=== PATIENT | female | born 1960 | race Caucasian/White ===

== ENCOUNTER 2024-03-28 21:52 | Inpatient (IN) | payer BC ==
[~2024-03-28] VITALS: Ht 165.1 cm; Wt 77.0 kg
[~2024-03-28 21:52] MED LIST: ENAL10TA78 PO; IPRA3AMP31 IH; IPRA4AER IH; METF500T PO; PRED10TA PO
[2024-03-28 22:16] LABS: BASOPHILS % (AUTO) 0.3 % (0-1); EOSINOPHILS % (AUTO) 0.1 % (0-6); HEMOGLOBIN 13.1 g/dl (12.0-16.0); LYMPHOCYTES # (AUTO) 1.7 X10'3 (1.1-4.8); LYMPHOCYTES % (AUTO) 13.5 % (21-51); MEAN CORPUSCULAR HGB CONC 33.5 g/dL (33.0-36.5); MEAN CORPUSCULAR VOLUME 89.5 FL (78-98); MEAN PLATELET VOLUME 8.3 FL (7.4-10.4); MONOCYTES # (AUTO) 0.6 X10'3 (0-0.9); MONOCYTES % (AUTO) 5.1 % (2-12); PLATELET COUNT 253 X10'3 (140-440); RED BLOOD COUNT 4.36 X10'6 (4.20-5.60); RED CELL DISTRIBUTION WIDTH 12.2 % (11.5-14.5); WHITE BLOOD COUNT 12.4 X10'3 (4.5-11.0)
[2024-03-28 22:25] LABS: ALANINE AMINOTRANSFERASE 51 U/L (12-78); ALBUMIN/GLOBULIN RATIO 0.6 (1.1-1.5); ALKALINE PHOSPHATASE 109 IU/L (46-116); ANION GAP 8 (8-16); ASPARTATE AMINO TRANSFERASE 34 U/L (10-37); BILIRUBIN,TOTAL 0.7 MG/DL (0.1-1.0); BLOOD UREA NITROGEN 8 MG/DL (7-18); BUN/CREATININE RATIO 11.4 (10.0-20.0); CALCIUM 9.4 MG/DL (8.5-10.1); CHLORIDE 93 MMOL/L (99-107); GLUCOSE 312 MG/DL (70-104); SODIUM 127 MMOL/L (135-145); TOTAL CARBON DIOXIDE 26.2 MMOL/L (24-32); TOTAL PROTEIN 8.1 G/DL (6.4-8.2); eCRCL 74 ML/MIN; eGFR 85 ML/MIN
[2024-03-28 22:32] LABS: PRO BRAIN NATRIURETIC PEPTIDE 1508 PG/ML (0-125)
[2024-03-28] MEDS: acetaminophen 1,000mg/100ml IV 100 ML IV STA (23:00)
[2024-03-28] MEDS: normal saline 1000ML IV soln IVB ONE (23:01)
[2024-03-28] MEDS ORDERED: iohexol 350MG/ML 100ml bottle IV ONE (23:09)
[2024-03-29] VITALS (13 sets, daily range): BP systolic 104–134; BP diastolic 45–78; PULSE 80–115; RESP 15–25; TEMP 97.7–98.1; O2SAT 92–96
[2024-03-29] MEDS ORDERED: heparin 10,000 units/1 ML INJ IV ONE ×2 (00:10→00:50)
[2024-03-29] MEDS ORDERED: potassium Cl 40MEQ/1/2NS 520ml 520 ML IV PRN (00:50)
[2024-03-29] MEDS ORDERED: magnesium 2GM in 50ml NS 50 ML IV PRN (00:50)
[2024-03-29] MEDS ORDERED: ondansetron/PF 4mg/2ml inj IV PRN ×2 (00:50→19:05)
[2024-03-29] MEDS ORDERED: dextrose 50%-water 50ml dispensing syringe IV PRN ×2 (00:50)
[2024-03-29] MEDS ORDERED: mag hydrox/Alum hydrox/simeth 30ml oral suspension PO PRN (00:50)
[2024-03-29] MEDS ORDERED: aminophylline 250mg/10ml inj. IV PRN (00:50)
[2024-03-29] MEDS ORDERED: regadenoson 0.4mg/5ml syringe IV PRN (00:50)
[2024-03-29] MEDS ORDERED: heparin 25,000 UNIT/250ml bag 250 ML IV PRN (00:50)
[2024-03-29] MEDS ORDERED: DEXTROSE 15 GM of carb/4 tabs (each vial/BOTTLE has 4 tablets) PO PRN ×2 (00:50)
[2024-03-29] MEDS ORDERED: magnesium hydroxide 30ml (MOM) UD suspension PO PRN (00:50)
[2024-03-29] MEDS ORDERED: heparin 10,000 units/1 ML INJ IV PRN (00:50)
[2024-03-29] MEDS ORDERED: glucagon, human recombinant 1mg kit SUBCUT PRN (00:50)
[2024-03-29] MEDS ORDERED: nitroGLYCERIN 0.4mg SUBLingual tab SL PRN (00:50)
[2024-03-29] MEDS ORDERED: magnesium 4gm in 100ml NS 100 ML IV PRN (00:50)
[2024-03-29] MEDS ORDERED: metoprolol tartrate 1mg/ml inj IV PRN (00:50)
[2024-03-29] MEDS: MESSAGE TO NURSING IV ONE ×3 (00:55→18:55)
[2024-03-29] MEDS ORDERED: non-formulary drug (Ipratropium/Albuterol Sulfate (Combivent Respimat Inhal Spray) 2 PUFFS IH PRN (01:00)
[2024-03-29] MEDS ORDERED: ipratropium/albuterol 3ml nebule IH PRN (01:00)
[2024-03-29] MEDS: heparin 10,000 units/1 ML INJ IV ONE (01:00)
[2024-03-29] MEDS: heparin 25,000 UNIT/250ml bag 250 ML IV PRN (01:03)
[2024-03-29] MEDS: morphine 2 MG/ML inj. syringe IV PRN ×2 (01:07→02:11)
[2024-03-29 01:09] LABS: APTT 23 SECONDS (22-32); INR 1.1 INR; PROTHROMBIN TIME 11.9 SECONDS (9.0-12.0)
[2024-03-29] MEDS: normal saline 1000ml 1,000 ML IV SCH (01:21)
[2024-03-29] MEDS: aspirin 81mg, enteric-coated 1 TAB TABLET.DR PO ONE (01:21)
[2024-03-29] MEDS: atorvastatin 20mg tablet PO SCH (01:21)
[2024-03-29 01:33] LABS: HEMOGLOBIN A1C 11.7 % (4.5-6.2)
[2024-03-29] MEDS: normal saline 1000ml 1,000 ML IV ONE (01:57)
[2024-03-29] MEDS ORDERED: ipratropium/albuterol 3ml nebule IH SCH (02:02)
[2024-03-29 02:43] LABS: MAGNESIUM 1.2 MG/DL (1.5-2.4); PHOSPHORUS 2.9 MG/DL (2.3-4.5)
[2024-03-29] MEDS: metoprolol tartrate 50mg tablet PO SCH (03:15)
[2024-03-29] MEDS: aspirin 81mg tab.chew PO ONE (03:15)
[2024-03-29] MEDS: nitroGLYCERIN 0.4mg SUBLingual tab SL PRN (04:13)
[2024-03-29] MEDS: ipratropium/albuterol 3ml nebule IH PRN (05:45)
[2024-03-29] MEDS: K and/or MAG REPLACEMENT MC SCH (08:00)
[2024-03-29] MEDS: lisinopril 20mg tablet PO SCH (08:08)
[2024-03-29 08:25] LABS: BASOPHILS % (AUTO) 0.3 % (0-1); EOSINOPHILS % (AUTO) 0.3 % (0-6); HEMATOCRIT 35.1 % (35.0-45.0); HEMOGLOBIN 11.6 g/dl (12.0-16.0); LYMPHOCYTES # (AUTO) 1.4 X10'3 (1.1-4.8); LYMPHOCYTES % (AUTO) 11.1 % (21-51); MEAN CORPUSCULAR HEMOGLOBIN 29.8 PG (27.0-31.0); MEAN CORPUSCULAR HGB CONC 33.1 g/dL (33.0-36.5); MEAN PLATELET VOLUME 8.5 FL (7.4-10.4); MONOCYTES % (AUTO) 7.9 % (2-12); NEUTROPHILS # (AUTO) 10.1 X10'3 (1.8-7.7); NEUTROPHILS % (AUTO) 80.4 % (42-75); PLATELET COUNT 223 X10'3 (140-440); RED CELL DISTRIBUTION WIDTH 12.2 % (11.5-14.5); WHITE BLOOD COUNT 12.6 X10'3 (4.5-11.0)
[2024-03-29 09:49] LABS: BASOPHILS # (AUTO) 0.1 X10'3 (0-0.2); BASOPHILS % (AUTO) 0.4 % (0-1); EOSINOPHILS % (AUTO) 0.3 % (0-6); HEMATOCRIT 34.4 % (35.0-45.0); HEMOGLOBIN 11.6 g/dl (12.0-16.0); LYMPHOCYTES # (AUTO) 1.5 X10'3 (1.1-4.8); MEAN CORPUSCULAR HEMOGLOBIN 30.6 PG (27.0-31.0); MEAN CORPUSCULAR HGB CONC 33.8 g/dL (33.0-36.5); MEAN CORPUSCULAR VOLUME 90.5 FL (78-98); MEAN PLATELET VOLUME 8.5 FL (7.4-10.4); MONOCYTES # (AUTO) 0.8 X10'3 (0-0.9); MONOCYTES % (AUTO) 7.1 % (2-12); NEUTROPHILS # (AUTO) 9.3 X10'3 (1.8-7.7); NEUTROPHILS % (AUTO) 79.2 % (42-75); PLATELET COUNT 203 X10'3 (140-440); RED CELL DISTRIBUTION WIDTH 12.3 % (11.5-14.5); WHITE BLOOD COUNT 11.7 X10'3 (4.5-11.0)
[2024-03-29] MEDS: heparin 10,000 units/1 ML INJ IV PRN (09:50)
[2024-03-29 10:10] LABS: APTT 25 SECONDS (22-32); INR 1.1 INR; PROTHROMBIN TIME 11.7 SECONDS (9.0-12.0)
[2024-03-29 10:11] LABS: ALBUMIN 2.6 G/DL (3.4-5.0); ANION GAP 8 (8-16); BLOOD UREA NITROGEN 5 MG/DL (7-18); BUN/CREATININE RATIO 8.3 (10.0-20.0); CALCIUM 8.5 MG/DL (8.5-10.1); CHLORIDE 96 MMOL/L (99-107); GLUCOSE 338 MG/DL (70-104); SODIUM 128 MMOL/L (135-145); TOTAL CARBON DIOXIDE 24.5 MMOL/L (24-32); eCRCL 86 ML/MIN; eGFR > 90 ML/MIN
[2024-03-29] MEDS: MESSAGE TO NURSING PO NR (10:33)
[2024-03-29] MEDS: INSULIN LISPRO 100 UNIT/ML INSULN.PEN MULTI-DOSE SQ SCH ×2 (12:00→21:26)
[2024-03-29] MEDS ORDERED: LIDOcaine 1% (10mg/ml) 2ml vial ONE (14:33)
[2024-03-29] MEDS ORDERED: heparin 1,000unit/ml 10ml vial 10 ML ONE (14:54)
[2024-03-29] MEDS ORDERED: verapamil 2.5 mg/ml inj IV ONE (14:54)
[2024-03-29] MEDS ORDERED: midazolam 1 mg/ML 2ml injection ONE (14:54)
[2024-03-29] MEDS ORDERED: iohexol 350MG/ML 100ml bottle IV ONE (14:54)
[2024-03-29] MEDS ORDERED: fentaNYL/PF 50MCG/1 ML 2ML syringe ONE (14:54)
[2024-03-29] MEDS ORDERED: nitroGLYCERIN 500mcg/5mL D5W 0 ML IV ONE (14:55)
[2024-03-29] MEDS ORDERED: nitroGLYCERIN 500mcg/5mL D5W 5 ML IV ONE (15:40)
[2024-03-29] MEDS: magnesium Cl slow-release 64mg tablet PO PRN (18:51)
[2024-03-29] MEDS: acetaminophen 325mg tablet PO PRN (19:04)
[2024-03-29] MEDS ORDERED: proCHLORperazine 10 MG/2 ml inj IV PRN (19:05)
[2024-03-29] MEDS ORDERED: HYDROcodone/acetaminophen 5mg/325mg tablet PO PRN (19:05)
[2024-03-29] MEDS ORDERED: insulin glargine (Lantus) pen - multi-dose SQ SCH (21:00)
[2024-03-29] MEDS: insulin glargine (Lantus) pen - multi-dose SQ SCH (21:24)
[2024-03-29] MEDS: CefTRIAXone/D5W-Rocephin 1gm 50 ML IV SCH (22:46)
[2024-03-30] VITALS (13 sets, daily range): BP systolic 109–167; BP diastolic 60–92; PULSE 87–128; RESP 16–26; TEMP 97.7–98.8; O2SAT 93–97
[2024-03-30 05:57] LABS: BASOPHILS % (AUTO) 0.3 % (0-1); EOSINOPHILS % (AUTO) 0.2 % (0-6); HEMATOCRIT 32.2 % (35.0-45.0); HEMOGLOBIN 10.6 g/dl (12.0-16.0); LYMPHOCYTES % (AUTO) 17.5 % (21-51); MEAN CORPUSCULAR HEMOGLOBIN 29.7 PG (27.0-31.0); MEAN CORPUSCULAR HGB CONC 32.8 g/dL (33.0-36.5); MEAN CORPUSCULAR VOLUME 90.6 FL (78-98); MEAN PLATELET VOLUME 8.4 FL (7.4-10.4); MONOCYTES # (AUTO) 1.2 X10'3 (0-0.9); MONOCYTES % (AUTO) 10.3 % (2-12); NEUTROPHILS # (AUTO) 8.2 X10'3 (1.8-7.7); NEUTROPHILS % (AUTO) 71.7 % (42-75); PLATELET COUNT 204 X10'3 (140-440); RED BLOOD COUNT 3.55 X10'6 (4.20-5.60); RED CELL DISTRIBUTION WIDTH 12.4 % (11.5-14.5); WHITE BLOOD COUNT 11.4 X10'3 (4.5-11.0)
[2024-03-30 06:14] LABS: ALBUMIN 2.3 G/DL (3.4-5.0); ANION GAP 4 (8-16); BLOOD UREA NITROGEN 6 MG/DL (7-18); BUN/CREATININE RATIO 10.9 (10.0-20.0); CALCIUM 8.5 MG/DL (8.5-10.1); CHLORIDE 102 MMOL/L (99-107); CHOL/HDL RATIO 6.2 (0.00-4.99); CHOLESTEROL 124 MG/DL (0-200); CREATININE 0.55 MG/DL (0.40-0.90); GLUCOSE 153 MG/DL (70-104); HDL CHOLESTEROL 20 MG/DL (35-60); LDL CHOLESTEROL 82 MG/DL (50-100); POTASSIUM 3.5 MMOL/L (3.5-5.1); SODIUM 135 MMOL/L (135-145); TOTAL CARBON DIOXIDE 29.1 MMOL/L (24-32); TRIGLYCERIDES 116 MG/DL (20-135); eCRCL 94 ML/MIN; eGFR > 90 ML/MIN
[2024-03-30] MEDS: aspirin 81mg, enteric-coated 1 TAB TABLET.DR PO SCH (07:58)
[2024-03-30] MEDS: INSULIN LISPRO 100 UNIT/ML INSULN.PEN MULTI-DOSE SQ SCH (10:08)
[2024-03-30] MEDS ORDERED: INSU300I10 SQ (12:01)
[2024-03-30] MEDS ORDERED: NEED-136 SUBCUT (12:01)
[2024-03-30] MEDS ORDERED: ATOR20TA66 PO (12:01)
[2024-03-30] MEDS ORDERED: iohexol 350MG/ML 100ml bottle IV ONE (13:51)
[2024-03-30] MEDS: diazepam inj 5 MG/ML inj. IV ONE (17:44)
[2024-03-30] MEDS: OXAZEpam 15mg capsule PO PRN (23:43)
[2024-03-31] VITALS (16 sets, daily range): BP systolic 113–147; BP diastolic 49–79; PULSE 86–119; RESP 16–25; TEMP 97.8–98.8; O2SAT 92–97
[2024-03-31 06:12] LABS: BASOPHILS % (AUTO) 0.3 % (0-1); EOSINOPHILS % (AUTO) 0.2 % (0-6); HEMATOCRIT 32.3 % (35.0-45.0); HEMOGLOBIN 10.8 g/dl (12.0-16.0); LYMPHOCYTES # (AUTO) 2.2 X10'3 (1.1-4.8); LYMPHOCYTES % (AUTO) 17.7 % (21-51); MEAN CORPUSCULAR HEMOGLOBIN 29.8 PG (27.0-31.0); MEAN CORPUSCULAR HGB CONC 33.4 g/dL (33.0-36.5); MEAN CORPUSCULAR VOLUME 89.3 FL (78-98); MEAN PLATELET VOLUME 8.3 FL (7.4-10.4); MONOCYTES # (AUTO) 1.2 X10'3 (0-0.9); MONOCYTES % (AUTO) 9.6 % (2-12); NEUTROPHILS % (AUTO) 72.2 % (42-75); PLATELET COUNT 235 X10'3 (140-440); RED BLOOD COUNT 3.62 X10'6 (4.20-5.60); RED CELL DISTRIBUTION WIDTH 12.3 % (11.5-14.5); WHITE BLOOD COUNT 12.4 X10'3 (4.5-11.0)
[2024-03-31 06:25] LABS: ALBUMIN 2.3 G/DL (3.4-5.0); ANION GAP 8 (8-16); BLOOD UREA NITROGEN 6 MG/DL (7-18); BUN/CREATININE RATIO 11.5 (10.0-20.0); CALCIUM 8.4 MG/DL (8.5-10.1); CHLORIDE 99 MMOL/L (99-107); CREATININE 0.52 MG/DL (0.40-0.90); GLUCOSE 130 MG/DL (70-104); SODIUM 135 MMOL/L (135-145); TOTAL CARBON DIOXIDE 28.5 MMOL/L (24-32); eCRCL 100 ML/MIN; eGFR > 90 ML/MIN
[2024-03-31 06:30] LABS: POTASSIUM 2.9 MMOL/L (3.5-5.1)
[2024-03-31] MEDS: potassium Cl 20 mEq SR tablet PO PRN ×2 (07:08→21:29)
[2024-03-31] MEDS ORDERED: vancomycin inj 1,000 MG in normal saline 250ml IV soln 250 ML IV STA (09:33)
[2024-03-31] MEDS: VANCOmycin 1250MG/NS 250ml Bag 250 ML IV SCH (11:15)
[2024-04-01] VITALS (10 sets, daily range): BP systolic 105–130; BP diastolic 52–62; PULSE 85–101; RESP 14–30; TEMP 97.9–98.6; O2SAT 94–98
[2024-04-01 07:00] LABS: BASOPHILS % (AUTO) 0.4 % (0-1); EOSINOPHILS # (AUTO) 0.1 X10'3 (0-0.9); EOSINOPHILS % (AUTO) 0.5 % (0-6); HEMATOCRIT 32.6 % (35.0-45.0); HEMOGLOBIN 10.7 g/dl (12.0-16.0); LYMPHOCYTES # (AUTO) 1.7 X10'3 (1.1-4.8); MEAN CORPUSCULAR HEMOGLOBIN 29.7 PG (27.0-31.0); MEAN PLATELET VOLUME 7.9 FL (7.4-10.4); MONOCYTES % (AUTO) 8.5 % (2-12); NEUTROPHILS # (AUTO) 8.5 X10'3 (1.8-7.7); NEUTROPHILS % (AUTO) 75.6 % (42-75); PLATELET COUNT 238 X10'3 (140-440); RED BLOOD COUNT 3.62 X10'6 (4.20-5.60); RED CELL DISTRIBUTION WIDTH 12.3 % (11.5-14.5); WHITE BLOOD COUNT 11.2 X10'3 (4.5-11.0)
[2024-04-01 07:08] LABS: ALBUMIN 2.2 G/DL (3.4-5.0); ANION GAP 4 (8-16); BLOOD UREA NITROGEN 5 MG/DL (7-18); BUN/CREATININE RATIO 9.4 (10.0-20.0); CALCIUM 8.6 MG/DL (8.5-10.1); CHLORIDE 100 MMOL/L (99-107); CREATININE 0.53 MG/DL (0.40-0.90); GLUCOSE 143 MG/DL (70-104); SODIUM 134 MMOL/L (135-145); eCRCL 98 ML/MIN; eGFR > 90 ML/MIN
[2024-04-01] MEDS: metoprolol tartrate 25mg tablet PO SCH (07:55)
[2024-04-01] MEDS: VANCOMYCIN LEVEL IV ONE (21:30)
[2024-04-02] VITALS (9 sets, daily range): BP systolic 114–150; BP diastolic 52–63; PULSE 79–100; RESP 11–21; TEMP 97.3–98.1; O2SAT 92–99
[2024-04-02 07:40] LABS: BASOPHILS % (AUTO) 0.3 % (0-1); EOSINOPHILS # (AUTO) 0.1 X10'3 (0-0.9); EOSINOPHILS % (AUTO) 0.7 % (0-6); HEMATOCRIT 32.1 % (35.0-45.0); HEMOGLOBIN 10.6 g/dl (12.0-16.0); LYMPHOCYTES # (AUTO) 1.9 X10'3 (1.1-4.8); LYMPHOCYTES % (AUTO) 16.6 % (21-51); MEAN CORPUSCULAR HEMOGLOBIN 29.6 PG (27.0-31.0); MEAN CORPUSCULAR VOLUME 89.8 FL (78-98); MEAN PLATELET VOLUME 8.2 FL (7.4-10.4); MONOCYTES # (AUTO) 0.8 X10'3 (0-0.9); MONOCYTES % (AUTO) 7.3 % (2-12); NEUTROPHILS # (AUTO) 8.4 X10'3 (1.8-7.7); NEUTROPHILS % (AUTO) 75.1 % (42-75); PLATELET COUNT 245 X10'3 (140-440); RED BLOOD COUNT 3.58 X10'6 (4.20-5.60); RED CELL DISTRIBUTION WIDTH 12.2 % (11.5-14.5); WHITE BLOOD COUNT 11.2 X10'3 (4.5-11.0)
[2024-04-02] MEDS: HYDROcodone/acetaminophen 10/325mg tab PO PRN (07:51)
[2024-04-02] MEDS: CefTRIAXone 2gm/D5W 50ml BAG 50 ML IV SCH (10:10)
[2024-04-02] MEDS: VANCOmycin 1250MG/NS 250ml Bag 250 ML IV SCH (10:13)
[2024-04-02 10:40] LABS: ALBUMIN 2.3 G/DL (3.4-5.0); ANION GAP 7 (8-16); BLOOD UREA NITROGEN 6 MG/DL (7-18); BUN/CREATININE RATIO 11.1 (10.0-20.0); CALCIUM 8.5 MG/DL (8.5-10.1); CHLORIDE 98 MMOL/L (99-107); CREATININE 0.54 MG/DL (0.40-0.90); GLUCOSE 127 MG/DL (70-104); POTASSIUM 3.6 MMOL/L (3.5-5.1); SODIUM 132 MMOL/L (135-145); TOTAL CARBON DIOXIDE 27.4 MMOL/L (24-32); eCRCL 96 ML/MIN; eGFR > 90 ML/MIN
[2024-04-02] MEDS: lactose-reduced food (Ensure Enlive) - 237ml bottle PO SCH (18:02)
[2024-04-03] VITALS (12 sets, daily range): BP systolic 114–157; BP diastolic 54–69; PULSE 81–110; RESP 16–25; TEMP 97.3–98.9; O2SAT 91–98
[2024-04-03 06:23] LABS: BASOPHILS % (AUTO) 0.4 % (0-1); EOSINOPHILS # (AUTO) 0.1 X10'3 (0-0.9); EOSINOPHILS % (AUTO) 1.1 % (0-6); HEMATOCRIT 33.9 % (35.0-45.0); HEMOGLOBIN 11.3 g/dl (12.0-16.0); LYMPHOCYTES # (AUTO) 1.6 X10'3 (1.1-4.8); MEAN CORPUSCULAR HEMOGLOBIN 29.7 PG (27.0-31.0); MEAN CORPUSCULAR HGB CONC 33.2 g/dL (33.0-36.5); MEAN CORPUSCULAR VOLUME 89.5 FL (78-98); MEAN PLATELET VOLUME 7.9 FL (7.4-10.4); MONOCYTES # (AUTO) 0.9 X10'3 (0-0.9); MONOCYTES % (AUTO) 7.9 % (2-12); NEUTROPHILS # (AUTO) 8.9 X10'3 (1.8-7.7); NEUTROPHILS % (AUTO) 76.6 % (42-75); PLATELET COUNT 295 X10'3 (140-440); RED BLOOD COUNT 3.78 X10'6 (4.20-5.60); RED CELL DISTRIBUTION WIDTH 12.4 % (11.5-14.5); WHITE BLOOD COUNT 11.6 X10'3 (4.5-11.0)
[2024-04-03 06:32] LABS: ALBUMIN 2.3 G/DL (3.4-5.0); ANION GAP 9 (8-16); BLOOD UREA NITROGEN 7 MG/DL (7-18); CALCIUM 8.8 MG/DL (8.5-10.1); CHLORIDE 98 MMOL/L (99-107); CREATININE 0.54 MG/DL (0.40-0.90); GLUCOSE 151 MG/DL (70-104); POTASSIUM 3.6 MMOL/L (3.5-5.1); SODIUM 134 MMOL/L (135-145); TOTAL CARBON DIOXIDE 27.3 MMOL/L (24-32); eCRCL 96 ML/MIN; eGFR > 90 ML/MIN
[2024-04-03] MEDS ORDERED: VANCOMYCIN LEVEL IV ONE (09:30)
[2024-04-04 02:00] VITALS: BP 142/61; PULSE 100; RESP 16; TEMP 97.7; O2SAT 95
[2024-04-04 06:00] VITALS: BP 128/95; PULSE 90; RESP 22; TEMP 97.8; O2SAT 90
[2024-04-04 08:45] VITALS: RESP 18; O2SAT 90
[2024-04-04 11:00] VITALS: BP 106/55; PULSE 86; RESP 22; TEMP 97.4; O2SAT 93
== END 2024-04-04 11:53 | disposition home or self-care (01) | DRG 871 ==
LOC: ER 21:52 → ED HOLD 03-29 00:59 → PCU 3S 03-29 16:14
PROVIDERS: ADMIT Surgery; ATTEND Family Medicine
PROC: B32T1ZZ Computerized Tomography (CT Scan) of Left Pulmonary Artery using Low Osmolar Contrast (ICD-10-PCS; 2024-03-28)
PROC: B3201ZZ Computerized Tomography (CT Scan) of Thoracic Aorta using Low Osmolar Contrast (ICD-10-PCS; 2024-03-28)
PROC: B32S1ZZ Computerized Tomography (CT Scan) of Right Pulmonary Artery using Low Osmolar Contrast (ICD-10-PCS; 2024-03-28)
PROC: 4A023N7 Measurement of Cardiac Sampling and Pressure, Left Heart, Percutaneous Approach (ICD-10-PCS; 2024-03-29)
PROC: B2111ZZ Fluoroscopy of Multiple Coronary Arteries using Low Osmolar Contrast (ICD-10-PCS; 2024-03-29)
PROC: B3251ZZ Computerized Tomography (CT Scan) of Bilateral Common Carotid Arteries using Low Osmolar Contrast (ICD-10-PCS; 2024-03-30)
PROC: B32G1ZZ Computerized Tomography (CT Scan) of Bilateral Vertebral Arteries using Low Osmolar Contrast (ICD-10-PCS; 2024-03-30)
PROC: B32R1ZZ Computerized Tomography (CT Scan) of Intracranial Arteries using Low Osmolar Contrast (ICD-10-PCS; 2024-03-30)
PROC: B3281ZZ Computerized Tomography (CT Scan) of Bilateral Internal Carotid Arteries using Low Osmolar Contrast (ICD-10-PCS; 2024-03-30)
PROC: 02HV33Z Insertion of Infusion Device into Superior Vena Cava, Percutaneous Approach (ICD-10-PCS; principal; 2024-04-04)
PROC: B548ZZA Ultrasonography of Superior Vena Cava, Guidance (ICD-10-PCS; 2024-04-04)
DX: A40.9 Streptococcal sepsis, unspecified (principal); I21.4 Non-ST elevation (NSTEMI) myocardial infarction; I33.0 Acute and subacute infective endocarditis; I63.81 Other cerebral infarction due to occlusion or stenosis of small artery; J96.90 Respiratory failure, unspecified, unspecified whether with hypoxia or hypercapnia; I61.8 Other nontraumatic intracerebral hemorrhage; J44.1 Chronic obstructive pulmonary disease with (acute) exacerbation; E87.1 Hypo-osmolality and hyponatremia; R29.701 NIHSS score 1; E87.6 Hypokalemia; J44.9 Chronic obstructive pulmonary disease, unspecified; I10 Essential (primary) hypertension; G51.0 Bell's palsy; E11.9 Type 2 diabetes mellitus without complications; Z79.899 Other long term (current) drug therapy; Z87.891 Personal history of nicotine dependence
CPT/HCPCS: 36415; 70450; 70496; 70498; 70551; 71045; 71275; 76942; 80048; 80053; 80061; 80202; 82948; 83036; 83605; 83735; 83835; 83880; 84100; 84484; 85025; 85610; 85651; 85730; 87040; 87077; 87186; 93005; 93306; 93458; 94640; 94664; 94668; 94760; 97116; 97161; 97530; 99152; 99285; A4615; A6258; C1751; C1894; G0378; J0131; J0696; J1644; J1815; J2250; J2270; J3010; J3360; J3370; J3490; J7030; J7040; Q9967

== ENCOUNTER 2025-11-02 10:26 | Emergency (ER) | payer MEDICARE, BC ==
[~2025-11-02] VITALS: Ht 165.1 cm; Wt 72.7 kg
[~2025-11-02 10:26] MED LIST changes: +ATOR20TA66 PO; +INSU300I10 SQ; +NEED-136 SUBCUT
--- NOTE | 2025-11-02 10:40 | ELECTROCARDIOGRAPH REPORT ---
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 Rashad Dubose Measurements Intervals [place] Rate: 92 P: 79 MA: 172 QRS: 75 QRSD: 86 T: 62 QT: 360 QTc: 446 Interpretive Statements Sinus rhythm Biatrial enlargement Anterior infarct, old Minimal ST depression, diffuse leads Electronically Signed On 11-06-2025 0:20:[address] Rashad Dubose Please click the below link to view image of tracing.
--- NOTE | 2025-11-02 11:15 | RADIOLOGY REPORT ---
AP portable chest Comparison: 03/29/2024 CLINICAL INDICATION: cough over a week FINDINGS: Heart size is enlarged. There is a cardiac monitoring device overlying the left chest. There is some scarring in the right lung apex. IMPRESSION: 1. No acute cardiopulmonary pathology compared to prior exam.
[2025-11-02 11:18] LABS: MEAN PLATELET VOLUME 7.6 FL (7.4-10.4); RED CELL DISTRIBUTION WIDTH 23.0 % (11.5-14.5)
[2025-11-02 11:39] LABS: CREATININE 0.57 MG/DL (0.40-0.90); PRO BRAIN NATRIURETIC PEPTIDE 894 PG/ML (0-125); TOTAL CARBON DIOXIDE 28.8 MMOL/L (24-32); eCRCL 89 ML/MIN; eGFR > 90 ML/MIN
[2025-11-02 11:59] LABS: BASOPHILS % (MANUAL) 1.0 % (0-1); EOSINOPHILS % (MANUAL) 1.0 % (0-6); LYMPHOCYTES % (MANUAL) 19.0 % (21-51); MONOCYTES % (MANUAL) 8.0 % (2-12); NEUTROPHILS % (MANUAL) 71.0 % (42-75); NUCLEATED RED BLOOD CELLS 2 /100WBC (0-0)
[2025-11-02 12:00] LABS: PLATELET ESTIMATE NORMAL
[2025-11-02] MEDS: ipratropium/albuterol 3ml nebule NEB ONE (13:38)
[2025-11-02 13:42] VITALS: PULSE 90; PULSE 93; RESP 22; RESP 24; O2SAT 99
--- NOTE | 2025-11-02 14:58 | Physician Documentation ---
History of Present Illness ~ Chief Complaint: Shortness of Breath Stated Complaint: SOB/COPD Time Seen by MD: 14:02 Primary Medical Doctor: alden Source: patient, family Mode of Arrival: POV Exam Limitations: no limitations HPI Patient presents secondary to cough: Congestion symptoms for the past week. Past medical history is significant for COPD. Was seen at [facility] urgent care and was given steroids with no improvement. She states she usually gets antibiotics when this happens. She has congestion, runny nose, creamy yellow phlegm. No fevers or chills. No chest pain or pressure. Has dyspnea on exertion. She was found to be anemic. History of anemia requiring iron transfusions. No dizziness, lightheadedness. Was asked, but otherwise denies review of systems. Medication Reconciliation Allergies: Coded Allergies: No Known Allergies (Unverified , 11/01/14) Scheduled Atorvastatin Calcium (Atorvastatin Calcium), 20 MG PO DAILY Doxycycline Monohydrate (Doxycycline Monohydrate), 1 CAP PO Q12H Enalapril Maleate* (Vasotec*), 1 TAB PO DAILY, (Reported) Insulin Glargine,Hum.rec.anlog (Insulin Glargine Max Solostar), 30 UNITS SQ QPM Metformin Hcl* (Glucophage*), 2 TAB PO BID, (Reported) Prednisone* (Prednisone*), 2 TAB PO DAILY Prednisone (Prednisone), 0 PO DAILY Scheduled PRN Ipratropium/Albuterol Sulfate (Combivent Respimat Inhal [place]), 2 PUFFS IH Q4H PRN for SOB or wheezing, (Reported) Ipratropium/Albuterol Sulfate (Duoneb 2.5-0.5 Mg/3 Ml Soln), 3 ML IH Q6H PRN for cough and wheeze Durable Medical Equipment [place], Insulin Disposable (Bd Ultra-Fine Pen Needle), SYR SUBCUT DAILY, (DME) Past Medical History Past Medical History: Hypertension, COPD Other Past Medical History: anemia Past Surgical History: no surgical history Smoking Status: Former smoker Alcohol Use: None Drug Use: none Lives with: Spouse Lives In: Home Occupation: employed Review of Systems ROS Review of systems negative except documented in HPI. Physical Exam Vital Signs: RN Vital Signs have been reviewed: Yes, Temperature: 97.0, Source: Temporal, Heart Rate: 94, Respiratory Rate: 18, BP: 134/63, Pulse Oximetry: 92, Weight: 72.700 Pulse Oximetry Reflects: adequate oxygenation Physical Exam General: Awake, alert, oriented. No apparent distress Neck: Supple. Normal range of motion. No JVD Respiratory: Expiratory wheezing on auscultation. No respiratory distress. Speaking in full sentences. Chest: Normal shape and size. No accessory muscle use. Cardiovascular: Regular rate and rhythm. S1-S2. No murmur, gallop, rub. Extremities: No lower extremity edema, cyanosis or clubbing. Neurologic: Alert and oriented x4. Nonfocal Psychiatric: Normal mood and affect. Skin: Normal color. Warm and dry. Progress Results/Orders Results/Orders Completed Orders - DIANA GAR NP Doxycycline 100mg Capsule (Vibramycin 10 (11/02/25 15:07) Medications Received in ER Medications (Trade) Dose Ordered Sig/Chuy Route PRN Reason Start Time Stop Time Status Last Admin Dose Admin (ipratrop/ albuterol 0.5-3(2.5) MG/3ml nebule) 3 ml ONCE ONCE NEB 11/02/25 13:30 11/02/25 13:31 DC 11/02/25 13:38 3 ML (VIBRAMYCIN 100mg capsule) 100 mg ONCE STAT PO 11/02/25 15:07 11/02/25 15:11 DC 11/02/25 15:34 100 MG Vital Signs 11/02/25 11/02/25 11/02/25 11/02/25 10:34 13:14 13:26 13:42 Temp 97.9 98.5 Pulse 96 95 90 Resp 22 22 22 22 B/P (MAP) 129/65 156/54 (88) Pulse Ox 95 93 99 O2 Delivery Room Air* O2 Flow Rate 0 FiO2 21 11/02/25 11/02/25 11/02/25 13:42 14:48 15:41 Temp 97.0 97.7 Pulse 93 94 98 Resp 24 18 18 B/P (MAP) 134/63 (86) 153/60 Pulse Ox 92 91 O2 Delivery Room Air* O2 Flow Rate 0 FiO2 21 Laboratory Tests Test 11/02/25 10:52 White Blood Count 9.9 Red Blood Count 3.51 L Hemoglobin 7.6 L Hematocrit 25.4 L Mean Corpuscular Volume 72.2 L Mean Corpuscular Hemoglobin 21.7 L Mean Corpuscular Hemoglobin Concent 30.0 L Red Cell Distribution Width 23.0 H Platelet Count 418 Mean Platelet Volume 7.6 Neutrophils (%) (Auto) 74.4 Lymphocytes (%) (Auto) 17.0 L Monocytes (%) (Auto) 7.6 Eosinophils (%) (Auto) 0.6 Basophils (%) (Auto) 0.4 Neutrophils # (Auto) 7.4 Lymphocytes # (Auto) 1.7 Monocytes # (Auto) 0.8 Eosinophils # (Auto) 0.1 Basophils # (Auto) 0.0 CBC Comment Differential Total Cells Counted 100 Neutrophils % (Manual) 71.0 Lymphocytes % (Manual) 19.0 L Monocytes % (Manual) 8.0 Eosinophils % (Manual) 1.0 Basophils % (Manual) 1.0 Nucleated Red Blood Cells 2 H Platelet Estimate Normal Red Blood Cell Morphology Perf Polychromasia 1+ Hypochromasia 1+ Poikilocytosis 1+ Basophilic Stippling Anisocytosis 3+ Microcytosis 1+ Sodium Level 132 L Potassium Level 4.2 Chloride Level 95 L Carbon Dioxide Level 28.8 Anion Gap 8 Blood Urea Nitrogen 12 Creatinine 0.57 Estimated GFR/1.73 m2 > 90 BUN/Creatinine Ratio 21.1 H Glucose Level 138 H Calcium Level 8.9 Pro-B-Type Natriuretic Peptide 894 H Albumin 3.6 Chemistry Comments EKG/XRAY/CT/US/VASC/MRI Chest X-Ray : Interpreted By: both Views: 1 VIEW Indication: shortness of breath Lungs: normal Mediastinum: normal Ribs/Bones: normal Abdomen: normal Impression: no acute disease Additional Comments [place] [id number] DIAGNOSTIC RADIOLOGY Patient: CARYN REYNA Medical Record: [id number] : 1960, Age: 65 Sex: Female Location: ER Patient Status: REG ER Service Date/Time: 11/02/25/ 1102 Ordering Physician: MAGUE IBARRA MD Exam: CHEST,TWO VIEWS AP portable chest Comparison: 03/29/2024 CLINICAL INDICATION: cough over a week FINDINGS: Heart size is enlarged. There is a cardiac monitoring device overlying the left chest. There is some scarring in the right lung apex. IMPRESSION: 1. No acute cardiopulmonary pathology compared to prior exam. Electronically Signed by:AVIS DORADO MD Date & Time: 11/02/25 1112 Dictated by: AVIS DORADO MD Dictation date and time: 11/02/25 1058 Primary Care Provider: NO PRIMARY CARE PROVIDER cc: MAGUE IBARRA MD ~ Heart Score: Heart Score Response (Comments) Value History Slightly Suspicious 0 EKG Normal 0 Age >65 2 Risk Factors 1 or 2 risk factors 1 Troponin N/A 0 Total 3 Medical Decision Making Additional information obtaine: old records, family Findings Patient presents secondary to shortness for breath unrelieved with prednisone one week ago. Previous records were reviewed. Her last admission was from March 29 to April 04, 2024. Admitted with an acute CVA, sepsis, endocarditis, CA type 2, cardiac catheterization with no obstructive coronary artery disease, COPD and hyponatremia. She states history of diabetes, hypertension, COPD. She has had history of anemia requiring iron transfusion. She complains of cough, cold, congestion symptoms with runny nose, creamy yellow phlegm production. She denies chest pain or pressure. No fevers or chills. Was asked, but otherwise denies review of systems. Suspect underlying COPD/bronchitis. We will be treated with prednisone and oral antibiotics. Offered admission given her anemia and hyponatremia and her symptoms. She would like to try oral medications 1st. Her vital signs are stable and this is reasonable. Warning signs and symptoms were reviewed and she will have close follow up with her primary care provider. She will return for any new or worsening symptoms. At this time, low clinical suspicion for ACS, pulmonary embolism, aortic dissection or any other acute cardiopulmonary pathology. Labs reviewed which reveal her hemoglobin is 7.6 and her hematocrit 25.4. Chest x-ray without acute cardiopulm pathology. Loop recorder noted. EKG SR rate 92. No acute ST changes. Will be discharged with doxycycline and prednisone. Close follow up recomm ended. Patient and her has been verbalized understanding. Heart Score: 0 Differential Dx:Considerations: Include: asthma, bronchitis, CHF, COPD, hypertension, essential, hyponatremia, myocardial infarction, pneumonia, pulmonary embolism, respiratory distress, respiratory failure, upper resp. infection Departure Time of Disposition: 14:56 Disposition: 01 HOME / SELF CARE / HOMELESS Impression: Primary Impression: COPD (chronic obstructive pulmonary disease) Qualified Codes: J44.1 - Chronic obstructive pulmonary disease with (acute) exacerbation Additional Impression: Bronchitis Condition: Stable Discharge Instructions: Bronchitis Additional Instructions: Take antibiotics as prescribed. Follow up within the next couple of days if no improvement. Follow up with your primary care provider with regards to your anemia. We discussed your hemoglobin and hematocrit were low at 7.6/25.4. Return for any new or worsening symptoms. Referrals: NO PRIMARY CARE PROVIDER (PCP) Prescriptions Prednisone* (Prednisone*) 20 Mg Tablet 2 TAB PO DAILY for 5 Days, #10 TAB Prov: DIANA GAR NP 11/02/25 Doxycycline Monohydrate (Doxycycline Monohydrate) 100 Mg Capsule 1 CAP PO Q12H for 7 Days, #14 CAP Prov: DIANA GAR NP 11/02/25 Education Educated: Patient Educated regarding: diagnosis, treatment, need for follow up Signature Scribe Signature: No scribe Attestation: The note accurately reflects work and decisions made by me.Diana Gar - JOSE 11/02/25 17:28 This note was created with the assistance of voice recognition software whereby errors in grammar, syntax, and/or spelling may have occurred despite active proofreading efforts by the author. Please do not hesitate to contact the provider for clarification or for questions regarding the content of this document. DIANA GAR NP Nov 02, 2025 14:58
[2025-11-02] MEDS ORDERED: DOXY-462 PO (15:06)
[2025-11-02] MEDS ORDERED: PRED20TA PO (15:06)
[2025-11-02] MEDS: DOXYCYCLINE 100MG CAPSULE PO STA (15:34)
[2025-11-02 15:41] VITALS: BP 153/60; PULSE 98; RESP 18; TEMP 97.7; O2SAT 91
== END 2025-11-02 15:44 | disposition home or self-care (01) ==
LOC: ER 10:29
DX: J44.1 Chronic obstructive pulmonary disease with (acute) exacerbation (principal); I10 Essential (primary) hypertension; I25.2 Old myocardial infarction; D64.9 Anemia, unspecified; Z79.899 Other long term (current) drug therapy
CPT/HCPCS: 36415; 71046; 80048; 83880; 85007; 85025; 93005; 94640; 94760; 99285